=== PATIENT | male | born 1955 | race Caucasian/White ===

== ENCOUNTER → 2022-11-04 14:52 | Outpatient (CLI) | payer BC, SELFPAY ==
--- NOTE | ~2022-11-04 | XR_ITS ---
EXAM: XR_KNEE1-2VRT_CR, XR_KNEE1-2VLT_CR DATE: 11/04/2022 15:57 HISTORY: PAIN IN RT AND LT KNEES . COMPARISON: None available. FINDINGS: Normal mineralization. No fracture or dislocation. No lytic or blastic lesion. Bilateral m oderate to severe medial joint space narrowing. Mild tricompartmental osteophytosis bilaterally. Quad riceps and patellar enthesopathy bilaterally. Small volume left and moderate volume right knee joint fluid. No erosion or periosteal change. Soft tissues within normal limits. IMPRESSION: Bilateral tricompartmental osteoarthritis. Moderate right and small left knee joint effus ions. Reviewed, dictated and finalized at location [facility]. IMPRESSION: Bilateral tricompartmental osteoarthritis. Moderate right and small left knee joint effusions.
== END ==
PROVIDERS: PCP Family Medicine Adolescent Medicine; Visit Provider Nurse Practitioner Family
DX: M17.0 Bilateral primary osteoarthritis of knee (principal); M25.461 Effusion, right knee; M25.462 Effusion, left knee
CPT/HCPCS: 73560

== ENCOUNTER 2024-01-13 02:06 | Day surgery (SDC) | payer BC, SELFPAY ==
[2024-01-03 10:07] VITALS: BMI 29.2
[2024-01-13 08:19] VITALS: BP 117/55; PULSE 82; RESP 20; TEMP 36.2; O2SAT 100; BMI 28.6
[2024-01-13] MEDS: LACTATED RINGERS 1,000 ML 150 ML IV CONT (08:31)
--- NOTE | 2024-01-13 08:55 | WPDANESEPPF ---
Anes - Initial Pre Proc Eval Procedure: Operation Date: 01/13/24 09:30 Proposed Procedures p Screening Colonoscopy - Barrington Mosqueda MD Date/Time: 01/13/24 08:55 Surgeon: Barrington Mosqueda MD Pre Op Diagnosis: Neoplasm screening Patient Data Age: 68 Gender: M Height: 1.83 m Weight: 95.8 kg Last Vital Signs Temp 97.1 F L 01/13/24 08:19 Pulse 82 01/13/24 08:19 Resp 20 01/13/24 08:19 BP 117/55 L 01/13/24 08:19 Pulse Ox 100 01/13/24 08:19 O2 Del Method Room Air 01/13/24 08:19 Allergies Allergy/AdvReac Type Severity Reaction Status Date / Time No Known Allergies Allergy Unknown Verified 01/13/24 08:19 Home Medications Medication Instructions Recorded Confirmed Type finasteride 5 mg tablet 5 mg PO DAILY #90 tabs 08/03/23 01/13/24 Rx doxazosin 1 mg tablet 1 mg PO DAILY #90 tabs 09/01/23 01/13/24 Rx atorvastatin 40 mg tablet 40 mg PO DAILY #90 tabs 11/01/23 01/13/24 Rx Patient hx anesthesia problems: none Family hx anesthesia problems: none Results Review: All pre-operative results and documents have been reviewed as part of the pre-operative evaluation. [facility] Family History Family History Father Heart disease Acute myocardial infarction Sibling Diabetes mellitus Social History Social History Smoking status: Former smoker Tobacco type: cigarettes Smoking end date: 07/05/02 Alcohol intake: never Substance use: never Substance use type: does not use Living arrangements: with family Occupation/Education: retired Gender identity (if verbalized by the patient): Male Sexual Orientation (if Verbalized by the Patient): Straight or Heterosexual Spiritual care concerns: No Agree to blood products: Yes Anes - Eval Final PreProcedure Day of Procedure 01/13/24 08:55 Patient weight: obese Heart: regular rate and rhythm Lungs: clear to auscultation Airway: Mallampati scale class II Neurological: alert and oriented Last oral intake: >/= 8 hours ASA classification: II Emergent: no Anesthetic plan: proceed Anesthesia type and monitoring: general GIVS and standard monitoring Results Review: All pre-operative results and documents have been reviewed as part of the pre-operative evaluation. Informed Consent: The patient's anesthetic plan and its attendant risks and benefits were discussed with the patient/family/POA. Questions were solicited and answers provided to the satisfaction of the patient/family/POA.
--- NOTE | 2024-01-13 09:13 | PM.HPGS ---
History of Present Illness History of Present Illness Consent: Risks, benefits, and alternatives have been discussed and questions answered. Patient agrees to proceed with procedure. Chief complaint: Neoplasm screening Narrative: Zain Yeager is a 68 year old male here for screening colonoscopy, last one 12 years ago Review of Systems Review of Systems: All systems reviewed & are unremarkable except as noted in HPI and below PMFSH Past Medical History Medical History (Updated 01/13/24 @ 09:14 by Barrington Mosqueda MD) Colon cancer screening Family History Family History Father Heart disease Acute myocardial infarction Sibling Diabetes mellitus Social History Social History Smoking status: Former smoker Tobacco type: cigarettes Smoking end date: 07/05/02 Alcohol intake: never Substance use: never Substance use type: does not use Living arrangements: with family Occupation/Education: retired Gender identity (if verbalized by the patient): Male Sexual Orientation (if Verbalized by the Patient): Straight or Heterosexual Spiritual care concerns: No Agree to blood products: Yes Meds Home Medications and Allergies Home Medications Medication Instructions Recorded Confirmed Type finasteride 5 mg tablet 5 mg PO DAILY #90 tabs 08/03/23 01/13/24 Rx doxazosin 1 mg tablet 1 mg PO DAILY #90 tabs 09/01/23 01/13/24 Rx atorvastatin 40 mg tablet 40 mg PO DAILY #90 tabs 11/01/23 01/13/24 Rx Allergies Allergy/AdvReac Type Severity Reaction Status Date / Time No Known Allergies Allergy Unknown Verified 01/13/24 08:19 Vital Signs Vital Signs - 24 hr 01/13/24 08:19 Temperature 97.1 F L Pulse Rate 82 Respiratory Rate 20 Blood Pressure 117/55 L Pulse Oximetry 100 Oxygen Delivery Room Air Exam Const: General: comfortable and no acute distress HENMT: Face/Nose/Sinus: Normal nares present Eyes: General: appearance normal, both eyes and all related structures Neck: Neck: no JVD Resp: Auscultation: clear to auscultation bilaterally Cardio: Rate: regular rate Rhythm: regular rhythm GI: Inspection: non-distended GI Palp: Yes Soft to palpation Skin: General skin exam: normal color Neuro: General: gait normal Speech: normal speech Extrem: General: normal to inspection Psych: Mental Status: mental status grossly normal Assessment and Plan Assessment and plan (1) Colon cancer screening: Code(s): Z12.11 - Encounter for screening for malignant neoplasm of colon Status: Acute Assessment and Plan: colonoscopy
[2024-01-13 09:36] VITALS: BP 117/66; PULSE 81; RESP 19; O2SAT 100
[2024-01-13 09:46] VITALS: BP 126/75; PULSE 81; RESP 20; O2SAT 100
[2024-01-13 09:56] VITALS: BP 131/72; PULSE 75; RESP 18; O2SAT 100
== END 2024-01-13 10:05 | disposition home or self-care (01) ==
PROVIDERS: PCP Family Medicine Adolescent Medicine; Visit Provider Internal Medicine Gastroenterology
PROC: 0DJD8ZZ Inspection of Lower Intestinal Tract, Via Natural or Artificial Opening Endoscopic (ICD-10-PCS; CPT 45378; principal; 2024-01-13 09:30)
DX: Z12.11 Encounter for screening for malignant neoplasm of colon (principal); D12.2 Benign neoplasm of ascending colon; K64.8 Other hemorrhoids; E66.9 Obesity, unspecified; Z68.28 Body mass index [BMI] 28.0-28.9, adult; Z87.891 Personal history of nicotine dependence; Z82.49 Family history of ischemic heart disease and other diseases of the circulatory system
CPT/HCPCS: 45385; 88305; J2704; J7120

== ENCOUNTER 2024-11-02 10:45 | Outpatient (RCR) | payer BC, SELFPAY ==
[2024-10-04 10:48] VITALS: BMI 28.6
[2024-10-04 10:50] VITALS: BMI 28.6
[2024-11-02 10:55] VITALS: BMI 27.3
[2024-11-02 11:55] VITALS: BMI 27.3
== END 2024-12-25 14:03 | disposition home or self-care (01) ==
LOC: ANHDMC 10:45
PROVIDERS: PCP Family Medicine Adolescent Medicine; Visit Provider Family Medicine
DX: E11.65 Type 2 diabetes mellitus with hyperglycemia (principal); Z71.3 Dietary counseling and surveillance
CPT/HCPCS: 97802; 97803